=== PATIENT | male | born 1990 | race Caucasian/White ===

== ENCOUNTER 2018-08-10 23:06 | Emergency (ER) | payer SELFPAY ==
[~2018-08-10] VITALS: Ht 180.3 cm; Wt 54.4 kg
[2018-08-10] MEDS ORDERED: FAMOTIDINE 20 MG TABLET. PO ONE (23:30)
[2018-08-10] MEDS ORDERED: ONDANSETRON PF 4 MG/2 ML VIAL. IV ONE (23:30)
[2018-08-10 23:32] LABS: BASO # 0.1 x10^3/uL (0.0-0.2); BASO % 1 % (0-3); EOS % 0 % (0-3); HEMATOCRIT 47.2 % (39.0-53.0); HEMOGLOBIN 16.1 g/dL (13.0-17.5); LYMPH # 2.9 x10^3/uL (1.0-4.8); LYMPH % 26 % (24-48); MEAN CORPUSCULAR HEMOGLOBIN 33 pg (25-35); MEAN CORPUSCULAR HGB CONC 34 g/dL (31-37); MEAN CORPUSCULAR VOLUME 97 fL (79-100); MONO # 0.6 x10^3/uL (0.0-1.1); MONO % 5 % (0-9); NEUT # 7.8 x10^3uL (1.8-7.7); NEUT % 69 % (31-73); PLATELET COUNT 260 x10^3/uL (140-400); RED BLOOD COUNT 4.86 x10^6/uL (4.30-5.70); RED CELL DISTRIBUTION WIDTH 14.5 % (11.5-14.5); WHITE BLOOD COUNT 11.3 x10^3/uL (4.0-11.0)
[2018-08-10] MEDS ORDERED: MULTIVIT INFUSN,ADULT 4,VIT K 10 ML, THIAMINE INJ 100 MG, FOLIC ACID INJ 1 MG in IV NOR... IV SCH (23:45)
[2018-08-10 23:51] LABS: ACETAMIN < 2 mcg/ml (10-30); ETHANOL 393 mg/dL (0-10); SALIC < 2.8 mg/dL (2.8-20.0)
[2018-08-11 01:02] LABS: CALCIUM 9.5 mg/dL (8.5-10.1); CREATININE 0.8 mg/dL (0.7-1.3); GFR 114.3; POTASSIUM 3.4 mmol/L (3.5-5.1)
[2018-08-11 01:05] LABS: ALBUMIN 4.6 g/dL (3.4-5.0); ALBUMIN/GLOBULIN RATIO 1.1 (1.0-1.7); TOTAL BILIRUBIN 0.8 mg/dL (0.2-1.0); TOTAL PROTEIN 8.8 g/dL (6.4-8.2)
[2018-08-11 01:06] LABS: BILIRUBIN,URINE NEGATIVE (NEG); CLARITY,URINE CLEAR; COLOR,URINE YELLOW; NITRITE,URINE NEGATIVE (NEG); PROTEIN,URINE 100 mg/dL (NEG-TRACE); UROBILINOGEN,URINE 0.2 mg/dL (0.2 mg/dL)
[2018-08-11 01:12] LABS: AMORPHOUS SEDIMENT,UR PRESENT /HPF; BACTERIA,URINE 0 /HPF (0-FEW); GRANULAR CASTS,URINE OCCASIONAL /HPF; HYALINE CASTS, URINE FEW /HPF; RBC,URINE RARE /HPF (0-2); WBC,URINE 0 /HPF (0-4)
[2018-08-11 01:14] LABS: AMPHETAMINE/METHAMPHETAMINE NEG (NEG); BARBITURATES NEG (NEG); BENZODIAZEPINES NEG (NEG); CANNABINOIDS NEG (NEG); COCAINE NEG (NEG); METHADONE NEG (NEG); OPIATES NEG (NEG); PHENCYCLIDINE NEG (NEG)
[2018-08-11] MEDS ORDERED: IV NORMAL SALINE 1000ML BAG 1,000 ML IV ONE (01:30)
[2018-08-11] MEDS ORDERED: ONDANSETRON PF 4 MG/2 ML VIAL. IV ONE (03:00)
[2018-08-11] MEDS ORDERED: CHLO25CA9 PO (03:33)
[2018-08-11] MEDS ORDERED: ONDA4TAB12 PO (03:33)
--- NOTE | 2018-08-11 03:33 | PHYS DOC ---
Past Medical History Past Medical History: Anxiety, Other Additional Past Medical Histor: ETOH abuse Alcohol Use: Heavy Drug Use: None Adult General Chief Complaint Chief Complaint: ALCOHOL INTOXICATION HPI HPI Patient is a 28 year old [f__sex] who presents with [] Review of Systems Review of Systems Constitutional: Denies fever or chills [] Eyes: Denies change in visual acuity, redness, or eye pain [] HENT: Denies nasal congestion or sore throat [] Respiratory: Denies cough or shortness of breath [] Cardiovascular: No additional information not addressed in HPI [] GI: Denies abdominal pain, nausea, vomiting, bloody stools or diarrhea [] : Denies dysuria or hematuria [] Musculoskeletal: Denies back pain or joint pain [] Integument: Denies rash or skin lesions [] Neurologic: Denies headache, focal weakness or sensory changes [] Endocrine: Denies polyuria or polydipsia [] All other systems were reviewed and found to be within normal limits, except as documented in this note. Current Medications Current Medications Current Medications Medications (Trade) Dose Ordered Sig/Narcisa Start Time Stop Time Status Last Admin Dose Admin Famotidine (Pepcid) 20 mg 1X ONCE 08/10/18 23:30 08/10/18 23:31 DC 08/10/18 23:40 20 MG Lorazepam (Ativan) 1 mg 1X ONCE 08/11/18 03:00 08/11/18 03:01 DC 08/11/18 03:06 1 MG Multivitamins 10 ml/Thiamine HCl 100 mg/Folic Acid 1 mg/Sodium Chloride 1,011.2 ml @ 1,000 mls/ hr Q1H 08/10/18 23:45 08/10/18 23:45 DC 08/10/18 23:41 1,000 MLS/HR Ondansetron HCl (Zofran) 4 mg 1X ONCE 08/11/18 03:00 08/11/18 03:01 DC 08/11/18 03:06 4 MG Sodium Chloride 1,000 ml @ 1,000 mls/hr 1X ONCE 08/11/18 01:30 08/11/18 02:29 DC 08/10/18 11:45 1,000 MLS/HR Allergies Allergies Allergies Coded Allergies Type Severity Reaction Last Updated Verified No Known Drug Allergies 08/10/18 No Physical Exam Physical Exam Constitutional: Well developed, well nourished, no acute distress, non-toxic appearance. [] HENT: Normocephalic, atraumatic, bilateral external ears normal, oropharynx moist, no oral exudates, nose normal. [] Eyes: PERRLA, EOMI, conjunctiva normal, no discharge. [] Neck: Normal range of motion, no tenderness, supple, no stridor. [] Cardiovascular:Heart rate regular rhythm, no murmur [] Lungs & Thorax: Bilateral breath sounds clear to auscultation [] Abdomen: Bowel sounds normal, soft, no tenderness, no masses, no pulsatile masses. [] Skin: Warm, dry, no erythema, no rash. [] Back: No tenderness, no CVA tenderness. [] Extremities: No tenderness, no cyanosis, no clubbing, ROM intact, no edema. [] Neurologic: Alert and oriented X 3, normal motor function, normal sensory function, no focal deficits noted. [] Psychologic: Affect normal, judgement normal, mood normal. [] Current Patient Data Vital Signs Vital Signs Date Time Temp Pulse Resp B/P (MAP) Pulse Ox O2 Delivery O2 Flow Rate FiO2 08/11/18 03:40 133 22 135/71 (92) 98 08/10/18 23:15 98.8 Room Air 98.8 Lab Values Laboratory Tests Test 08/10/18 23:20 08/11/18 00:55 White Blood Count 11.3 x10^3/uL (4.0-11.0) H Red Blood Count 4.86 x10^6/uL (4.30-5.70) Hemoglobin 16.1 g/dL (13.0-17.5) Hematocrit 47.2 % (39.0-53.0) Mean Corpuscular Volume 97 fL (79-100) Mean Corpuscular Hemoglobin 33 pg (25-35) Mean Corpuscular Hemoglobin Concent 34 g/dL (31-37) Red Cell Distribution Width 14.5 % (11.5-14.5) Platelet Count 260 x10^3/uL (140-400) Neutrophils (%) (Auto) 69 % (31-73) Lymphocytes (%) (Auto) 26 % (24-48) Monocytes (%) (Auto) 5 % (0-9) Eosinophils (%) (Auto) 0 % (0-3) Basophils (%) (Auto) 1 % (0-3) Neutrophils # (Auto) 7.8 x10^3uL (1.8-7.7) H Lymphocytes # (Auto) 2.9 x10^3/uL (1.0-4.8) Monocytes # (Auto) 0.6 x10^3/uL (0.0-1.1) Eosinophils # (Auto) 0.0 x10^3/uL (0.0-0.7) Basophils # (Auto) 0.1 x10^3/uL (0.0-0.2) Sodium Level 136 mmol/L (136-145) Potassium Level 3.4 mmol/L (3.5-5.1) L Chloride Level 94 mmol/L (98-107) L Carbon Dioxide Level 19 mmol/L (21-32) L Anion Gap 23 (6-14) H Blood Urea Nitrogen 8 mg/dL (8-26) Creatinine 0.8 mg/dL (0.7-1.3) Estimated GFR (Cockcroft-Gault) 114.3 BUN/Creatinine Ratio 10 (6-20) Glucose Level 112 mg/dL (70-99) H Calcium Level 9.5 mg/dL (8.5-10.1) Magnesium Level 1.9 mg/dL (1.8-2.4) Total Bilirubin 0.8 mg/dL (0.2-1.0) Aspartate Amino Transferase (AST) 331 U/L (15-37) H Alanine Aminotransferase (ALT) 244 U/L (16-63) H Alkaline Phosphatase 193 U/L (46-116) H Total Protein 8.8 g/dL (6.4-8.2) H Albumin 4.6 g/dL (3.4-5.0) Albumin/Globulin Ratio 1.1 (1.0-1.7) Salicylates Level < 2.8 mg/dL (2.8-20.0) L Salicylate Last Dose Date Unk Salicylate Last Dose Time Unk Acetaminophen Level < 2 mcg/ml (10-30) L Acetaminophen Last Dose Date Unk Acetaminophen Last Dose Time Unk Ethyl Alcohol Level 393 mg/dL (0-10) H Urine Collection Type Unknown Urine Color Yellow Urine Clarity Clear Urine pH 6.0 Urine Specific [place] 1.010 Urine Protein 100 mg/dL (NEG-TRACE) Urine Glucose (UA) Negative mg/dL (NEG) Urine Ketones (Stick) 15 mg/dL (NEG) Urine Blood Trace (NEG) Urine Nitrite Negative (NEG) Urine Bilirubin Negative (NEG) Urine Urobilinogen Dipstick 0.2 mg/dL (0.2 mg/dL) Urine Leukocyte Esterase Negative (NEG) Urine RBC Rare /HPF (0-2) Urine WBC 0 /HPF (0-4) Urine Squamous Epithelial Cells None /LPF Urine Amorphous Sediment Present /HPF Urine Bacteria 0 /HPF (0-FEW) Urine Hyaline Casts Few /HPF Urine Granular Casts Occasional /HPF Urine Mucus Slight /LPF Urine Opiates Screen Neg (NEG) Urine Methadone Screen Neg (NEG) Urine Barbiturates Neg (NEG) Urine Phencyclidine Screen Neg (NEG) Urine Amphetamine/Methamphetamine Neg (NEG) Urine Benzodiazepines Screen Neg (NEG) Urine Cocaine Screen Neg (NEG) Urine Cannabinoids Screen Neg (NEG) Urine Ethyl Alcohol Pos (NEG) Laboratory Tests 08/10/18 23:20 Laboratory Tests 08/10/18 23:20 EKG EKG @2315 Sinus tachycardia at 139bpm, NO ST elevation, QRS 84ms, QT/QTc 276/425ms Radiology/Procedures Radiology/Procedures [] Course & Med Decision Making Course & Med Decision Making Pertinent Labs and Imaging studies reviewed. (See chart for details) [] Dragon Disclaimer Dragon Disclaimer This electronic medical record was generated, in whole or in part, using a voice recognition dictation system. Departure Departure Impression: Primary Impression: Alcohol abuse Disposition: HOME, SELF-CARE Condition: STABLE Referrals: NO PCP (PCP) Patient Instructions: Alcohol Withdrawal, [id number], Alcohol and Drug Addiction, Finding Treatment Scripts Ondansetron (ONDANSETRON ODT) 4 Mg Tab.rapdis 1 TAB PO PRN Q6-8HRS PRN for NAUSEA, #16 TAB Prov: ZULEMA ALVARES DO 08/11/18 Chlordiazepoxide Hcl (CHLORDIAZEPOXIDE HCL) 25 Mg Capsule 2 TAB PO QID PRN for ALCOHOL WITHDRAWAL, #30 CAP Prov: ZULEMA ALVARES DO 08/11/18 ZULEMA ALVARES DO Aug 11, 2018 03:33
[2018-08-11 03:40] VITALS: BP 135/71
--- NOTE | 2018-08-11 16:55 | EKG ---
[facility] [address] [place] [address] Test Date: 2018-08-10 Test Time: 23:15:00 Pat Name: SOLO CLAY Department: Room: Gender: M Hris Manager: : 1990 Requested By: ZULEMA ALVARES Order Number: [id number] Reading MD: Ken Pacheco MD Measurements Intervals [place] Rate: 139 P: 115 LA: 140 QRS: 20 QRSD: 84 T: 30 QT: 276 QTc: 425 Interpretive Statements SINUS TACHYCARDIA Electronically Signed On 08-12-2018 9:57:28 CDT by Ken Pacheco MD
== END 2018-08-11 03:45 | disposition home or self-care (01) ==
LOC: ER 23:06
DX: F10.229 Alcohol dependence with intoxication, unspecified (principal); F41.9 Anxiety disorder, unspecified; Y90.8 Blood alcohol level of 240 mg/100 ml or more
CPT/HCPCS: 36415; 80053; 80307; 80329; 81001; 83735; 85025; 93005; 96365; 96375; 96376; 99284; G0480; J2060; J2405; J7030

== ENCOUNTER 2018-08-20 13:03 | Emergency (ER) | payer BC ==
[~2018-08-20] VITALS: Ht 180.3 cm; Wt 59.0 kg
[~2018-08-20 13:03] MED LIST: CHLO25CA9 PO; ONDA4TAB12 PO
--- NOTE | 2018-08-20 13:21 | PHYS DOC ---
Past Medical History Past Medical History: Anxiety, Other Additional Past Medical Histor: ETOH abuse Alcohol Use: Heavy Drug Use: None Adult General Chief Complaint Chief Complaint: MECHANICAL FALL HPI HPI Patient is a 28 year old male with a history of alcohol abuse presents to the ED complaining of fall at work while taking out the trash. States he fell and hit his head when he was bending over. States he is unsure of loss of consciousness. States that he drinks alcohol everyday. States he recently checked himself out of a detox program. States that he checked himself out because he got a job. He drank two airplane bottles of vodka today. States he usually drinks around 12 per day. States he had one episode of vomiting this morning prior to his fall. States he felt like he ate bad food yesterday. Denies suicidal/homicidal ideation, auditory/visual hallucinations, chest pain, shortness of breath, symptoms prior to fall, use of blood thinners, weakness, dizziness, neck pain or headache. Review of Systems Review of Systems Constitutional: Denies fever or chills [] Eyes: Denies change in visual acuity, redness, or eye pain [] HENT: Denies nasal congestion or sore throat [] Respiratory: Denies cough or shortness of breath [] Cardiovascular: No additional information not addressed in HPI [] GI: Complains of vomiting. Denies abdominal pain, bloody stools or diarrhea [] : Denies dysuria or hematuria [] Musculoskeletal: Denies back pain or joint pain [] Integument: Denies rash or skin lesions [] Neurologic: Denies headache, focal weakness or sensory changes [] All other systems were reviewed and found to be within normal limits, except as documented in this note. Current Medications Current Medications Current Medications Medications (Trade) Dose Ordered Sig/Narcisa Start Time Stop Time Status Last Admin Dose Admin Diphenhydramine HCl (Benadryl) 25 mg 1X ONCE 08/20/18 13:30 08/20/18 13:32 DC 08/20/18 13:51 25 MG Ondansetron HCl (Zofran) 4 mg 1X ONCE 08/20/18 13:30 08/20/18 13:31 DC 08/20/18 13:50 4 MG Sodium Chloride 1,000 ml @ 1,000 mls/hr 1X ONCE 08/20/18 13:30 08/20/18 14:29 DC 08/20/18 14:25 1,000 MLS/HR Allergies Allergies Allergies Coded Allergies Type Severity Reaction Last Updated Verified No Known Drug Allergies 08/10/18 No Physical Exam Physical Exam Constitutional: Well developed, well nourished, no acute distress, non-toxic appearance. [] HENT: Normocephalic, atraumatic Eyes: PERRLA, EOMI, conjunctiva normal, no discharge. [] Neck: Normal range of motion, no tenderness, supple, no stridor. [] Cardiovascular: Tachycardia, regular rhythm, no murmur [] Lungs & Thorax: Bilateral breath sounds clear to auscultation [] Abdomen: Bowel sounds normal, soft, no tenderness, no masses, no pulsatile masses. [] Skin: Warm, dry, no erythema, no rash. [] Back: No tenderness, no CVA tenderness. [] Extremities: No tenderness, no cyanosis, no clubbing, ROM intact, no edema. [] Neurologic: Alert and oriented X 3, normal motor function, normal sensory function, no focal deficits noted. [] Psychologic: Affect normal, judgement normal, mood normal. [] Current Patient Data Vital Signs Vital Signs Date Time Temp Pulse Resp B/P (MAP) Pulse Ox O2 Delivery O2 Flow Rate FiO2 08/20/18 15:34 93 18 99 08/20/18 13:10 99.2 156/101 (119) Room Air 99.2 Lab Values Laboratory Tests Test 08/20/18 13:13 08/20/18 14:41 White Blood Count 6.0 x10^3/uL (4.0-11.0) Red Blood Count 4.38 x10^6/uL (4.30-5.70) Hemoglobin 14.3 g/dL (13.0-17.5) Hematocrit 42.3 % (39.0-53.0) Mean Corpuscular Volume 97 fL (79-100) Mean Corpuscular Hemoglobin 33 pg (25-35) Mean Corpuscular Hemoglobin Concent 34 g/dL (31-37) Red Cell Distribution Width 15.4 % (11.5-14.5) H Platelet Count 304 x10^3/uL (140-400) Neutrophils (%) (Auto) 55 % (31-73) Lymphocytes (%) (Auto) 34 % (24-48) Monocytes (%) (Auto) 10 % (0-9) H Eosinophils (%) (Auto) 1 % (0-3) Basophils (%) (Auto) 1 % (0-3) Neutrophils # (Auto) 3.3 x10^3uL (1.8-7.7) Lymphocytes # (Auto) 2.0 x10^3/uL (1.0-4.8) Monocytes # (Auto) 0.6 x10^3/uL (0.0-1.1) Eosinophils # (Auto) 0.1 x10^3/uL (0.0-0.7) Basophils # (Auto) 0.1 x10^3/uL (0.0-0.2) Sodium Level 142 mmol/L (136-145) Potassium Level 3.7 mmol/L (3.5-5.1) Chloride Level 103 mmol/L (98-107) Carbon Dioxide Level 26 mmol/L (21-32) Anion Gap 13 (6-14) Blood Urea Nitrogen 15 mg/dL (8-26) Creatinine 0.9 mg/dL (0.7-1.3) Estimated GFR (Cockcroft-Gault) 99.8 BUN/Creatinine Ratio 17 (6-20) Glucose Level 118 mg/dL (70-99) H Calcium Level 8.4 mg/dL (8.5-10.1) L Total Bilirubin 0.5 mg/dL (0.2-1.0) Aspartate Amino Transferase (AST) 187 U/L (15-37) H Alanine Aminotransferase (ALT) 180 U/L (16-63) H Alkaline Phosphatase 161 U/L (46-116) H Total Protein 7.6 g/dL (6.4-8.2) Albumin 4.0 g/dL (3.4-5.0) Albumin/Globulin Ratio 1.1 (1.0-1.7) Ethyl Alcohol Level 343 mg/dL (0-10) H Urine Color Yellow Urine Clarity Clear Urine pH 6.5 Urine Specific [place] 1.015 Urine Protein Negative mg/dL (NEG-TRACE) Urine Glucose (UA) Negative mg/dL (NEG) Urine Ketones (Stick) Negative mg/dL (NEG) Urine Blood Negative (NEG) Urine Nitrite Negative (NEG) Urine Bilirubin Negative (NEG) Urine Urobilinogen Dipstick 1.0 mg/dL (0.2 mg/dL) Urine Leukocyte Esterase Negative (NEG) Urine RBC Rare /HPF (0-2) Urine WBC Occ /HPF (0-4) Urine Squamous Epithelial Cells Occ /LPF Urine Bacteria 0 /HPF (0-FEW) Urine Mucus Mod /LPF Urine Opiates Screen Neg (NEG) Urine Methadone Screen Neg (NEG) Urine Barbiturates Neg (NEG) Urine Phencyclidine Screen Neg (NEG) Urine Amphetamine/Methamphetamine Neg (NEG) Urine Benzodiazepines Screen Pos (NEG) Urine Cocaine Screen Neg (NEG) Urine Cannabinoids Screen Pos (NEG) Urine Ethyl Alcohol Pos (NEG) Laboratory Tests 08/20/18 13:13 Laboratory Tests 08/20/18 13:13 EKG EKG [] Radiology/Procedures Radiology/Procedures PROCEDURE: CT HEAD AND CERVICAL SPINE WO EXAM: Head and cervical spine CT without contrast. HISTORY: Fall. TECHNIQUE: Computed tomographic images of the head and cervical spine were obtained without contrast. *One or more of the following individualized dose reduction techniques were utilized for this examination: 1. Automated exposure control. 2. Adjustment of the mA and/or kV according to patient size. 3. Use of iterative reconstruction technique. COMPARISON: None. FINDINGS: Head: There is no acute or subacute intracranial hemorrhage. There is no mass effect or midline shift. There is no hydrocephalus. The de la paz-white matter differentiation pattern is intact. There is slight increased density within the left frontal extra-axial space on a single image, considered with a prominent cortical vessel. The orbits and visualized paranasal sinuses mastoid air cells are unremarkable. No calvarial lesion is seen. Cervical spine: There is no listhesis. The vertebral goldstein are normal in height and the disc spaces are preserved. There is no fracture. There is no significant cervical foraminal or central canal stenosis. No lytic or sclerotic osseous lesion is seen. IMPRESSION: No acute intracranial finding or evidence of acute cervical spine trauma.[] Course & Med Decision Making Course & Med Decision Making Pertinent Labs and Imaging studies reviewed. (See chart for details) Discussed labs and imaging findings with patient in the ED. Patient's tachycardia improved with 2 L of fluids given. On re-examination, HR is 92 bpm. []Discussed case with PAT team whom was consulted. He was accepted to [facility]. Patient has to have an alcohol level below 300. Patient will wait in the ED until below 300 and be discharged to the [facility]. Patient is denying homicidal/suicidal ideation, auditory/visual hallucinations and states he is feeling much better. Patient spoke with [facility] over phone. Requests to be discharged with a friend and come to [facility] after going home. [facility] is agreeable to plan. They state patient can come to [facility] after 3 hours as his alcohol level will be low enough for admission. [facility] requests a script for librium to only be filled at [facility] to accompany him for use at detox center. Discussed the importance of following directions to go to [facility]. Provided contact information/education for follow-up. Script for librium written. Discussed reasons to return to the ED. Patient understands and agrees with plan. Patient is alert and oriented x 3. Patient has steady gait and ambulates without assistance. Dragon Disclaimer Dragon Disclaimer This electronic medical record was generated, in whole or in part, using a voice recognition dictation system. Departure Departure Impression: Primary Impression: Alcohol abuse Additional Impressions: Elevated liver enzymes Alcohol withdrawal Disposition: 05 TRANSFER OTHER (by friend to [facility]) Condition: STABLE Referrals: NO PCP (PCP) Patient Instructions: Alcohol Intoxication, Alcohol Withdrawal Problem Qualifiers JAX MONROY Aug 20, 2018 13:21
[2018-08-20 13:29] LABS: BASO # 0.1 x10^3/uL (0.0-0.2); BASO % 1 % (0-3); EOS # 0.1 x10^3/uL (0.0-0.7); EOS % 1 % (0-3); HEMATOCRIT 42.3 % (39.0-53.0); HEMOGLOBIN 14.3 g/dL (13.0-17.5); LYMPH % 34 % (24-48); MEAN CORPUSCULAR HEMOGLOBIN 33 pg (25-35); MEAN CORPUSCULAR HGB CONC 34 g/dL (31-37); MEAN CORPUSCULAR VOLUME 97 fL (79-100); MONO # 0.6 x10^3/uL (0.0-1.1); MONO % 10 % (0-9); NEUT # 3.3 x10^3uL (1.8-7.7); NEUT % 55 % (31-73); PLATELET COUNT 304 x10^3/uL (140-400); RED BLOOD COUNT 4.38 x10^6/uL (4.30-5.70); RED CELL DISTRIBUTION WIDTH 15.4 % (11.5-14.5)
[2018-08-20] MEDS ORDERED: diphenhydrAMINE 50 MG/ML VIAL IVP ONE (13:30)
[2018-08-20] MEDS ORDERED: ONDANSETRON PF 4 MG/2 ML VIAL. IV ONE (13:30)
[2018-08-20] MEDS ORDERED: IV NORMAL SALINE 1000ML BAG 1,000 ML IV ONE ×2 (13:30)
[2018-08-20 13:44] LABS: CALCIUM 8.4 mg/dL (8.5-10.1); CREATININE 0.9 mg/dL (0.7-1.3); GFR 99.8; POTASSIUM 3.7 mmol/L (3.5-5.1)
[2018-08-20 13:50] LABS: ALBUMIN/GLOBULIN RATIO 1.1 (1.0-1.7); TOTAL BILIRUBIN 0.5 mg/dL (0.2-1.0); TOTAL PROTEIN 7.6 g/dL (6.4-8.2)
--- NOTE | 2018-08-20 14:28 | RAD ---
EXAM: Head and cervical spine CT without contrast. HISTORY: Fall. TECHNIQUE: Computed tomographic images of the head and cervical spine were obtained without contrast. *One or more of the following individualized dose reduction techniques were utilized for this examination: 1. Automated exposure control. 2. Adjustment of the mA and/or kV according to patient size. 3. Use of iterative reconstruction technique. COMPARISON: None. FINDINGS: Head: There is no acute or subacute intracranial hemorrhage. There is no mass effect or midline shift. There is no hydrocephalus. The de la paz-white matter differentiation pattern is intact. There is slight increased density within the left frontal extra-axial space on a single image, considered with a prominent cortical vessel. The orbits and visualized paranasal sinuses mastoid air cells are unremarkable. No calvarial lesion is seen. Cervical spine: There is no listhesis. The vertebral goldstein are normal in height and the disc spaces are preserved. There is no fracture. There is no significant cervical foraminal or central canal stenosis. No lytic or sclerotic osseous lesion is seen. IMPRESSION: No acute intracranial finding or evidence of acute cervical spine trauma. Electronically signed by: Roya Sidhu MD (08/20/2018 2:26 PM) [place] [id number]
[2018-08-20 14:55] LABS: BILIRUBIN,URINE NEGATIVE (NEG); CLARITY,URINE CLEAR; COLOR,URINE YELLOW; NITRITE,URINE NEGATIVE (NEG); PH,URINE 6.5; PROTEIN,URINE NEGATIVE (NEG-TRACE)
[2018-08-20 14:56] LABS: BARBITURATES NEG (NEG); BENZODIAZEPINES POS (NEG); CANNABINOIDS POS (NEG); COCAINE NEG (NEG); METHADONE NEG (NEG); OPIATES NEG (NEG); PHENCYCLIDINE NEG (NEG)
[2018-08-20 14:58] LABS: AMPHETAMINE/METHAMPHETAMINE NEG (NEG)
[2018-08-20 15:03] LABS: BACTERIA,URINE 0 /HPF (0-FEW); RBC,URINE RARE /HPF (0-2); SQUAMOUS EPITHELIAL CELL,UR OCC /LPF; WBC,URINE OCC /HPF (0-4)
[2018-08-20 15:34] VITALS: BP 144/83
== END 2018-08-20 15:47 | disposition home or self-care (01) ==
LOC: ER 13:03
DX: F10.239 Alcohol dependence with withdrawal, unspecified (principal); R74.8 Abnormal levels of other serum enzymes; R11.10 Vomiting, unspecified; R00.0 Tachycardia, unspecified; R51 Headache; M54.2 Cervicalgia; F41.9 Anxiety disorder, unspecified; Y90.8 Blood alcohol level of 240 mg/100 ml or more; W18.39XA Other fall on same level, initial encounter; Y93.89 Activity, other specified; Y92.89 Other specified places as the place of occurrence of the external cause; Y99.0 Civilian activity done for income or pay
CPT/HCPCS: 36415; 70450; 72125; 80053; 80307; 81001; 85025; 96361; 96374; 96375; 99285; G0480; J1200; J2405; J7030

== ENCOUNTER 2018-10-26 15:26 | Emergency (ER) | payer SELFPAY ==
[~2018-10-26] VITALS: Ht 177.8 cm; Wt 59.0 kg
[2018-10-26 16:27] LABS: BASO # 0.1 x10^3/uL (0.0-0.2); BASO % 1 % (0-3); EOS % 0 % (0-3); HEMATOCRIT 44.8 % (39.0-53.0); HEMOGLOBIN 15.5 g/dL (13.0-17.5); LYMPH # 2.1 x10^3/uL (1.0-4.8); LYMPH % 24 % (24-48); MEAN CORPUSCULAR HEMOGLOBIN 35 pg (25-35); MEAN CORPUSCULAR HGB CONC 35 g/dL (31-37); MEAN CORPUSCULAR VOLUME 100 fL (79-100); MONO # 0.5 x10^3/uL (0.0-1.1); MONO % 5 % (0-9); NEUT # 6.3 x10^3uL (1.8-7.7); NEUT % 70 % (31-73); PLATELET COUNT 457 x10^3/uL (140-400); RED CELL DISTRIBUTION WIDTH 15.4 % (11.5-14.5); WHITE BLOOD COUNT 8.9 x10^3/uL (4.0-11.0)
[2018-10-26 16:43] LABS: CALCIUM 9.2 mg/dL (8.5-10.1); CREATININE 0.8 mg/dL (0.7-1.3); GFR 114.3; POTASSIUM 3.9 mmol/L (3.5-5.1)
[2018-10-26 16:49] LABS: ALBUMIN 4.4 g/dL (3.4-5.0); ALBUMIN/GLOBULIN RATIO 1.2 (1.0-1.7); TOTAL BILIRUBIN 0.6 mg/dL (0.2-1.0); TOTAL PROTEIN 8.1 g/dL (6.4-8.2)
[2018-10-26 17:09] LABS: ACETAMIN < 2 mcg/ml (10-30); SALIC 3.9 mg/dL (2.8-20.0)
[2018-10-26] MEDS ORDERED: MULTIVIT INFUSN,ADULT 4,VIT K 10 ML, THIAMINE INJ 100 MG, FOLIC ACID INJ 1 MG in IV NOR... IV ONE (17:15)
[2018-10-26] MEDS ORDERED: librium PO (18:53)
--- NOTE | 2018-10-26 18:53 | PHYS DOC ---
Past Medical History Past Medical History: Anxiety, Other Additional Past Medical Histor: ETOH abuse Past Surgical History: No Surgical History Additional Information: CHEWS TOBACCO Alcohol Use: Heavy Additional Information: DRINKS VODKA DAILY Drug Use: None Adult General Chief Complaint Chief Complaint: ALCOHOL INTOXICATION HPI HPI Patient is a 28 year old [f__sex] who presents with [] Review of Systems Review of Systems Constitutional: Denies fever or chills [] Eyes: Denies change in visual acuity, redness, or eye pain [] HENT: Denies nasal congestion or sore throat [] Respiratory: Denies cough or shortness of breath [] Cardiovascular: No additional information not addressed in HPI [] GI: Denies abdominal pain, nausea, vomiting, bloody stools or diarrhea [] : Denies dysuria or hematuria [] Musculoskeletal: Denies back pain or joint pain [] Integument: Denies rash or skin lesions [] Neurologic: Denies headache, focal weakness or sensory changes [] Endocrine: Denies polyuria or polydipsia [] All other systems were reviewed and found to be within normal limits, except as documented in this note. Current Medications Current Medications Current Medications Medications (Trade) Dose Ordered Sig/Narcisa Start Time Stop Time Status Last Admin Dose Admin Lorazepam (Ativan Inj) 1 mg 1X ONCE 10/26/18 18:30 10/26/18 18:31 DC 10/26/18 18:40 1 MG Multivitamins 10 ml/Thiamine HCl 100 mg/Folic Acid 1 mg/Sodium Chloride 1,011.2 ml @ 1,000.088 mls/hr 1X ONCE 10/26/18 17:15 10/26/18 18:15 DC 10/26/18 17:25 1,000.088 MLS/HR Allergies Allergies Allergies Coded Allergies Type Severity Reaction Last Updated Verified No Known Drug Allergies 08/10/18 No Physical Exam Physical Exam Constitutional: Well developed, well nourished, no acute distress, non-toxic appearance. [] HENT: Normocephalic, atraumatic, bilateral external ears normal, oropharynx [address], no oral exudates, nose normal. [] Eyes: PERRLA, EOMI, conjunctiva normal, no discharge. [] Neck: Normal range of motion, no tenderness, supple, no stridor. [] Cardiovascular:Heart rate regular rhythm, no murmur [] Lungs & Thorax: Bilateral breath sounds clear to auscultation [] Abdomen: Bowel sounds normal, soft, no tenderness, no masses, no pulsatile masses. [] Skin: Warm, dry, no erythema, no rash. [] Back: No tenderness, no CVA tenderness. [] Extremities: No tenderness, no cyanosis, no clubbing, ROM intact, no edema. [] Neurologic: Alert and oriented X 3, normal motor function, normal sensory function, no focal deficits noted. [] Psychologic: Affect normal, judgement normal, mood normal. [] Current Patient Data Vital Signs Vital Signs Date Time Temp Pulse Resp B/P (MAP) Pulse Ox O2 Delivery O2 Flow Rate FiO2 10/26/18 16:16 99.0 127 26 124/80 (95) 98 Room Air 99.0 Lab Values Laboratory Tests Test 10/26/18 15:50 White Blood Count 8.9 x10^3/uL (4.0-11.0) Red Blood Count 4.50 x10^6/uL (4.30-5.70) Hemoglobin 15.5 g/dL (13.0-17.5) Hematocrit 44.8 % (39.0-53.0) Mean Corpuscular Volume 100 fL (79-100) Mean Corpuscular Hemoglobin 35 pg (25-35) Mean Corpuscular Hemoglobin Concent 35 g/dL (31-37) Red Cell Distribution Width 15.4 % (11.5-14.5) H Platelet Count 457 x10^3/uL (140-400) H Neutrophils (%) (Auto) 70 % (31-73) Lymphocytes (%) (Auto) 24 % (24-48) Monocytes (%) (Auto) 5 % (0-9) Eosinophils (%) (Auto) 0 % (0-3) Basophils (%) (Auto) 1 % (0-3) Neutrophils # (Auto) 6.3 x10^3uL (1.8-7.7) Lymphocytes # (Auto) 2.1 x10^3/uL (1.0-4.8) Monocytes # (Auto) 0.5 x10^3/uL (0.0-1.1) Eosinophils # (Auto) 0.0 x10^3/uL (0.0-0.7) Basophils # (Auto) 0.1 x10^3/uL (0.0-0.2) Sodium Level 140 mmol/L (136-145) Potassium Level 3.9 mmol/L (3.5-5.1) Chloride Level 100 mmol/L (98-107) Carbon Dioxide Level 22 mmol/L (21-32) Anion Gap 18 (6-14) H Blood Urea Nitrogen 17 mg/dL (8-26) Creatinine 0.8 mg/dL (0.7-1.3) Estimated GFR (Cockcroft-Gault) 114.3 BUN/Creatinine Ratio 21 (6-20) H Glucose Level 117 mg/dL (70-99) H Calcium Level 9.2 mg/dL (8.5-10.1) Total Bilirubin 0.6 mg/dL (0.2-1.0) Aspartate Amino Transferase (AST) 357 U/L (15-37) H Alanine Aminotransferase (ALT) 229 U/L (16-63) H Alkaline Phosphatase 188 U/L (46-116) H Total Protein 8.1 g/dL (6.4-8.2) Albumin 4.4 g/dL (3.4-5.0) Albumin/Globulin Ratio 1.2 (1.0-1.7) Salicylates Level 3.9 mg/dL (2.8-20.0) Salicylate Last Dose Date Salicylate Last Dose Time Acetaminophen Level < 2 mcg/ml (10-30) L Acetaminophen Last Dose Date Acetaminophen Last Dose Time Ethyl Alcohol Level 404 mg/dL (0-10) *H Laboratory Tests 10/26/18 15:50 Laboratory Tests 10/26/18 15:50 EKG EKG [] Radiology/Procedures Radiology/Procedures [] Course & Med Decision Making Course & Med Decision Making Pertinent Labs and Imaging studies reviewed. (See chart for details) [] Dragon Disclaimer Dragon Disclaimer This electronic medical record was generated, in whole or in part, using a voice recognition dictation system. Departure Departure Impression: Primary Impression: Alcohol intoxication Disposition: 01 HOME, SELF-CARE Condition: STABLE Referrals: NO PCP (PCP) Patient Instructions: Alcohol Intoxication, [id number] Additional Instructions: You are going to a detox center for help with your alcohol dependence. Fill the prescription and use as directed. Return to the ER if your symptoms worsen. Scripts [librium] 25 MG No Conflict Check 1 TAB PO UD for 12 Days, #30 TAB 0 Refills take 1 tablet PO QID x3 days then 1 tablet PO TID x3 days then 1 tablet PO BID x3 days then 1 tablet PO daily x3 days. Prov: ALICIA SEGUNDO ACTIVITY THERAPY SPECIALIST 10/26/18 Problem Qualifiers Primary Impression: Alcohol intoxication Complication of substance-induced condition: uncomplicated Qualified Codes: F10.920 - Alcohol use, unspecified with intoxication, uncomplicated ALICIA SEGUNDO ACTIVITY THERAPY SPECIALIST Oct 26, 2018 18:53
[2018-10-26 19:00] LABS: BARBITURATES NEG (NEG); BENZODIAZEPINES NEG (NEG); CANNABINOIDS POS (NEG); COCAINE NEG (NEG); METHADONE NEG (NEG); OPIATES NEG (NEG); PHENCYCLIDINE NEG (NEG)
[2018-10-26 19:01] VITALS: BP 124/71
[2018-10-26 19:03] LABS: AMPHETAMINE/METHAMPHETAMINE NEG (NEG)
== END 2018-10-26 19:36 | disposition home or self-care (01) ==
LOC: ER 15:26
DX: F10.229 Alcohol dependence with intoxication, unspecified (principal); F41.9 Anxiety disorder, unspecified; F17.220 Nicotine dependence, chewing tobacco, uncomplicated; Y90.8 Blood alcohol level of 240 mg/100 ml or more
CPT/HCPCS: 36415; 80053; 80307; 80329; 85025; 96365; 96375; 99284; G0480; J2060; J7030

== ENCOUNTER 2020-10-10 21:14 | Inpatient (IN) | payer SELFPAY ==
[~2020-10-10] VITALS: Ht 180.3 cm; Wt 68.5 kg
[~2020-10-10 21:14] MED LIST changes: +librium PO
--- NOTE | 2020-10-10 22:20 | PHYS DOC ---
Past Medical History Past Medical History: Alcoholism, Anxiety, Other Additional Past Medical Histor: ETOH abuse (RAOCARTER Zambrano DIRECTOR OF CRITICAL CARE) Past Surgical History: No Surgical History (CARTER GARDINER DIRECTOR OF CRITICAL CARE) Smoking Status: Current Every Day Smoker Alcohol Use: Heavy Drug Use: None (CARTER GARDINER DIRECTOR OF CRITICAL CARE) General Adult EDM: Chief Complaint: WITHDRAWL HPI: HPI: Patient is a 30 year old male with a history of anxiety, alcoholism, who presents to the ED today requesting help for alcohol use. Patient states he was sober for 1 month and started draining roughly 5 days ago. She states today he has drank multiple shots. He states he lives with a roommate that kicked him out for alcohol use. He states he decided to come to the ED and get help. He said he has been in rehab before for alcohol use. Patient denies any suicidal or homicidal ideations. (RAOCARTER Zambrano DIRECTOR OF CRITICAL CARE) Review of Systems: Review of Systems: Constitutional: Denies fever or chills. [] Eyes: Denies change in visual acuity. [] HENT: Denies nasal congestion or sore throat. [] Respiratory: Denies cough or shortness of breath. [] Cardiovascular: Denies chest pain or edema. [] GI: Denies abdominal pain, nausea, vomiting, bloody stools or diarrhea. [] : Denies dysuria. [] Musculoskeletal: Denies back pain or joint pain. [] Integument: Denies rash. [] Neurologic: Denies headache, focal weakness or sensory changes. [] Psychiatric: Reports alcohol intoxication and requesting help (CARTER GARDINER DIRECTOR OF CRITICAL CARE) Heart Score: C/O Chest Pain: N/A Risk Factors: Risk Factors: DM, Current or recent (<one month) smoker, HTN, HLP, family history of CAD, obesity. Risk Scores: Score 0 - 3: 2.5% MACE over next 6 weeks - Discharge Home Score 4 - 6: 20.3% MACE over next 6 weeks - Admit for Clinical Observation Score 7 - 10: 72.7% MACE over next 6 weeks - Early Invasive Strategies (CARTER GARDINER DIRECTOR OF CRITICAL CARE) Allergies: Allergies: Allergies Coded Allergies Type Severity Reaction Last Updated Verified No Known Drug Allergies 08/10/18 No (CARTER GARDINER DIRECTOR OF CRITICAL CARE) Physical Exam: PE: Constitutional: Well developed, well nourished, no acute distress, non-toxic appearance. [] HENT: Normocephalic, atraumatic, bilateral external ears normal, oropharynx moist, no oral exudates, nose normal. [] Eyes: PERRLA, EOMI, conjunctiva normal, no discharge. [] Neck: Normal range of motion, no tenderness, supple, no stridor. [] Cardiovascular:Heart rate regular rhythm, no murmur [] Lungs & Thorax: Bilateral breath sounds clear to auscultation [] Abdomen: Bowel sounds normal, soft, no tenderness, no masses, no pulsatile masses. [] Skin: Warm, dry, no erythema, no rash. [] Back: No tenderness, no CVA tenderness. [] Extremities: No tenderness, no cyanosis, no clubbing, ROM intact, no edema. [] Neurologic: Alert and oriented X 3, normal motor function, normal sensory function, no focal deficits noted. [] Psychologic: Flat affect (CARTER GARDINER APRN) PE: Constitutional: Well developed, well nourished, no acute distress, non-toxic appearance HENT: Normocephalic, atraumatic Eyes: Conjunctiva normal, no discharge Neck: Normal range of motion, supple Lungs & Thorax: No respiratory distress, equal chest rise and fall Abdomen: Soft, no tenderness Skin: Warm, dry, no erythema, no rash Back: No tenderness, no CVA tenderness Extremities: No tenderness, ROM intact, no edema Neurologic: Alert and oriented X 3, no focal deficits noted Psychologic: Affect normal, judgment normal (ZULEMA ALVARES DO) EKG: EKG: [] (CARTER GARDINER APRN) Radiology/Procedures: Radiology/Procedures: [] (CARTER GARDINER APRN) Course & Med Decision Making: Course & Med Decision Making Pertinent Labs and Imaging studies reviewed. (See chart for details) This is a 30-year-old male patient presented to the ED today requesting help for alcohol use. Patient states he was kicked out by his roommate and is currently homeless and would like to get help for alcohol use. Rea from PAT team in the ED [address] Alvares. pending labs and placement (CARTER GARDINER APRN) Course & Med Decision Making [id number]-signout received from Carter MORALES for patient with chronic alcohol abuse requesting detox. Labs pending at time of signout. Labs reviewed and posted to chart. EtOH 285. PAT consultation performed. Atttempted to place patient at [facility]. Anxiety addressed with PO ativan. [facility] requesting to start Librium. Initial dose of Librium given. [facility] subsequently not able to accept transfer at this time. Recommend admission to hospital and re-evaluation with psychiatric assessment team. Patient requiring admission for further evaluation and treatment. Discussed with Dr. Kearney (hospitalist) who is in agreement with admission. Discussed findings and plan with patient, who acknowledges understanding and agreement. (ZULEMA ALVARES DO) Dragon Disclaimer: Dragon Disclaimer: This electronic medical record was generated, in whole or in part, using a voice recognition dictation system. (CARTER GARDINER APRN) Departure Departure Impression: Primary Impression: Alcohol abuse Disposition: ADMITTED INPATIENT Admitting Physician: NAVEED Pulido) (ZULEMA ALVARES DO) Condition: STABLE Referrals: NO PCP (PCP) Attending Signature Attending Signature I have personally interviewed and examined the patient. All charts, labs, and imaging studies were reviewed. I agree with the PA/COSMETICS SUPERVISOR's findings, exam, and plan. (ZULEMA ALVARES DO) CARTER GARDINER APRN Oct 10, 2020 22:20 ZULEMA ALVARES DO Oct 11, 2020 03:41
[2020-10-10 22:28] LABS: BASO # 0.1 x10^3/uL (0.0-0.2); BASO % 0 % (0-3); EOS % 0 % (0-3); HEMATOCRIT 43.5 % (39.0-53.0); HEMOGLOBIN 14.8 g/dL (13.0-17.5); LYMPH # 2.7 x10^3/uL (1.0-4.8); LYMPH % 22 % (24-48); MEAN CORPUSCULAR HEMOGLOBIN 31 pg (25-35); MEAN CORPUSCULAR HGB CONC 34 g/dL (31-37); MEAN CORPUSCULAR VOLUME 91 fL (79-100); MONO # 0.6 x10^3/uL (0.0-1.1); MONO % 5 % (0-9); NEUT # 8.8 x10^3/uL (1.8-7.7); NEUT % 72 % (31-73); PLATELET COUNT 327 x10^3/uL (140-400); RED CELL DISTRIBUTION WIDTH 14.4 % (11.5-14.5); WHITE BLOOD COUNT 12.1 x10^3/uL (4.0-11.0)
[2020-10-10 22:36] LABS: CALCIUM 9.4 mg/dL (8.5-10.1); CREATININE 0.8 mg/dL (0.7-1.3); GFR 112.8; POTASSIUM 3.9 mmol/L (3.5-5.1)
[2020-10-10 22:42] LABS: ALBUMIN 4.8 g/dL (3.4-5.0); ALBUMIN/GLOBULIN RATIO 1.7 (1.0-1.7); TOTAL BILIRUBIN 0.2 mg/dL (0.2-1.0); TOTAL PROTEIN 7.7 g/dL (6.4-8.2)
[2020-10-10 22:43] LABS: ACETAMIN < 2 mcg/ml (10-30); ETHANOL 285 mg/dL (0-10)
[2020-10-10 22:51] LABS: BILIRUBIN,URINE NEGATIVE (NEG); CLARITY,URINE CLEAR; COLOR,URINE YELLOW; NITRITE,URINE NEGATIVE (NEG); PROTEIN,URINE NEGATIVE (NEG-TRACE); UROBILINOGEN,URINE 0.2 mg/dL (0.2 mg/dL)
[2020-10-10 22:57] LABS: BACTERIA,URINE 0 /HPF (0-FEW); RBC,URINE 0 /HPF (0-2); WBC,URINE 0 /HPF (0-4)
[2020-10-10 22:59] LABS: BARBITURATES NEG (NEG); BENZODIAZEPINES NEG (NEG); CANNABINOIDS NEG (NEG); COCAINE NEG (NEG); METHADONE NEG (NEG); OPIATES NEG (NEG); PHENCYCLIDINE NEG (NEG)
[2020-10-10 23:01] LABS: AMPHETAMINE/METHAMPHETAMINE NEG (NEG)
[2020-10-11] MEDS ORDERED: chlordiazePOXIDE HCL 25 MG CAPSULE PO ONE (02:00)
[2020-10-11] MEDS ORDERED: chlordiazePOXIDE HCL 25 MG CAPSULE PO PRN (03:45)
[2020-10-11] MEDS ORDERED: ONDANSETRON PF 4 MG/2 ML VIAL. IV PRN (03:45)
[2020-10-11] MEDS ORDERED: THIAMINE 100 MG TABLET. PO SCH (04:00)
[2020-10-11] MEDS ORDERED: PRENATAL MULTIVITAMIN TABLET. PO SCH (04:00)
[2020-10-11 04:20] VITALS: BP 133/95
[2020-10-11 07:00] VITALS: BP 151/103
[2020-10-11] MEDS: ONDANSETRON ODT 4 MG TAB.RAPDIS. PO PRN ×2 (08:07→16:07)
[2020-10-11] MEDS: chlordiazePOXIDE HCL 25 MG CAPSULE PO PRN ×2 (08:07→12:43)
[2020-10-11 11:00] VITALS: BP 129/91
--- NOTE | 2020-10-11 11:09 | NUR ---
ZAKI following. Discussed with RN, pt from home, room air, regular diet, rapid COVID-19 negative. Some confusion as to whether pt is going to [facility] or to his sister's home. Jos LOPEZ) coming back to see patient. Plan for discharge today. Med Assist following for self pay status. ZAKI will continue to follow. Addendum: 10/11/20 at 1231 by NITZA HAINES Jos LOPEZ) met with pt, pt is going to discharge to his sister's home. Pt provided with resources for [facility], [facility], [facility] and [facility]. Discharge order for home with self care.
--- NOTE | 2020-10-11 11:57 | DS ---
DATE OF DISCHARGE: 10/11/2020 ADMITTING DIAGNOSIS: Alcohol withdrawal. DISCHARGE DIAGNOSIS: Resolving alcohol withdrawal. HOSPITAL COURSE: The patient is a pleasant middle-aged male who presented with alcohol withdrawal. We admitted the patient, gave him alcohol withdrawal. Today, I saw him and examined him. He is at his baseline and wants to go. We plan on giving him a p.r.n. Librium. DISPOSITION: Home. ACTIVITY: As tolerated. DIET: Low sodium. DISCHARGE MEDICATIONS: Please see the MRAD. I did give him a prescription for Librium 25 mg p.o. q. 6 hours p.r.n. TOTAL TIME: 31 minutes. JESSIE/KERON DR: Junior TID: [id number]
--- NOTE | 2020-10-11 12:38 | HP ---
ADMIT DATE: 10/11/2020 CHIEF COMPLAINT: Alcohol withdrawal. HISTORY OF PRESENT ILLNESS: The patient is a pleasant 30-year-old male who drinks too much. He states he has a history of PTSD because he worked too many hours at a [employer] station. Now, he drinks too much. He states he also has agoraphobia. Yesterday, he states he got kicked out of his house. He drove down the road and then stopped and called the police, and stated that he was too drunk to be driving. Surprisingly he was not arrested. He was brought here for alcohol withdrawal. I discussed the case with ER physician. We are admitting the patient with alcohol withdrawal protocol. PAST MEDICAL HISTORY: Alcoholism, tobacco abuse. ALLERGIES: None. FAMILY HISTORY: Alcoholism. SOCIAL HISTORY: He drinks and smokes. No drugs. Currently he does not work. He states he is agoraphobic. MEDICATIONS: Reviewed. Please refer to the MRAD. REVIEW OF SYSTEMS: GENERAL: No history of weight change, weakness or fevers. SKIN: No bruising, hair changes or rashes. EYES: No blurred, double or loss of vision. NOSE AND THROAT: No history of nosebleeds, hoarseness or sore throat. HEART: No history of palpitations, chest pain or shortness of breath on exertion. LUNGS: Denies cough, hemoptysis, wheezing or shortness of breath. GASTROINTESTINAL: Denies changes in appetite, nausea, vomiting, diarrhea or constipation. GENITOURINARY: No history of frequency, urgency, hesitancy or nocturia. NEUROLOGIC: He complains of shaking. PSYCHIATRIC: He complains of anxiety, depression and agoraphobia. ENDOCRINE: No history of heat or cold intolerance, polyuria or polydipsia. EXTREMITIES: Denies muscle weakness, joint pain, pain on walking or stiffness. PHYSICAL EXAMINATION: VITALS: Within normal limits and are stable. GENERAL: No apparent distress. Alert and oriented. HEENT: Normal cephalic atraumatic, external auditory canals are patent EYES: Extraocular muscles are intact, pupils are equally round and reactive to light and accommodation MUSCULOSKELETAL: Well developed, well nourished, good range of motion ENDOCRINE: No thyromegaly was palpated LYMPHATICS: No cervical chain or axillary nodes were noted HEMATOPOIETIC: No bruising NECK: Supple, no JVD, no thyromegaly was noted. LUNGS: Clear to auscultation in all lung hopkins without rhonchi or wheezing. HEART: RRR, S1, S2 present. Peripheral pulses intact, no obvious murmurs were noted. ABDOMEN: Soft, nontender. Positive bowel sounds no organomegaly, normal bowel sounds. EXTREMITIES: Without any cyanosis, clubbing, or edema. Pedal pulses intact, Homans sign is negative. NEUROLOGIC: He is a little tremulous. PSYCHIATRIC: He is depressed and anxious. SKIN: No ulcerations or rashes, good skin turgor, no jaundice. VASCULAR: Good capillary refill, neurovascular bundle appears to be intact. LABORATORY DATA: White count 12. Electrolytes normal other than an anion gap of 19 and a BUN of 7. Urinalysis negative. Drug screen negative other than alcohol level of 285. COVID testing is negative. ASSESSMENT AND PLAN: Alcohol withdrawal. The patient has been admitted. We will give him alcohol withdrawal protocol. Consult the psychiatric assessment team. Home meds. Deep venous thrombosis prophylaxis. Full code. JESSIE/EARNEST/NELLY DR: Junior TID: [id number]
[2020-10-11 15:00] VITALS: BP 167/94
== END 2020-10-11 11:37 | disposition home or self-care (01) | DRG 897 ==
LOC: ER 21:14 → 4 NORTH 10-11 03:56
PROVIDERS: ADMIT Family Medicine; ATTEND Family Medicine
DX: F10.239 Alcohol dependence with withdrawal, unspecified (principal); F40.00 Agoraphobia, unspecified; F43.10 Post-traumatic stress disorder, unspecified; Z87.891 Personal history of nicotine dependence; F41.9 Anxiety disorder, unspecified; Z20.822 Contact with and (suspected) exposure to COVID-19
CPT/HCPCS: 80053; 80307; 80329; 81001; 83690; 85025; 87426; G0480; U0003; U0005; 99285-25; G0378